=== PATIENT | female | born 1965 | race Caucasian/White ===

== ENCOUNTER → 2017-07-24 | Outpatient (CLI) | payer BC | LOC: COL.RAD 11:19 | DX: T84.213A Breakdown (mechanical) of internal fixation device of bones of foot and toes, initial encounter (principal); Z98.1 Arthrodesis status ==

== ENCOUNTER → 2017-08-10 | Outpatient (CLI) | payer BC | LOC: COL.RAD 07:17 | DX: D25.9 Leiomyoma of uterus, unspecified (principal); R68.82 Decreased libido; N95.9 Unspecified menopausal and perimenopausal disorder ==

== ENCOUNTER → 2017-08-17 | Outpatient (CLI) | payer BC | LOC: MC.RAD 14:48 | DX: Z12.31 Encounter for screening mammogram for malignant neoplasm of breast (principal); N64.89 Other specified disorders of breast; N94.10 Unspecified dyspareunia; N95.9 Unspecified menopausal and perimenopausal disorder; G47.00 Insomnia, unspecified; R68.82 Decreased libido; R53.81 Other malaise; R53.82 Chronic fatigue, unspecified; Z98.890 Other specified postprocedural states ==

== ENCOUNTER → 2017-08-31 | Outpatient (CLI) | payer BC | LOC: MC.RAD 09:00 | DX: R92.2 Inconclusive mammogram (principal); N64.89 Other specified disorders of breast ==

== ENCOUNTER 2018-05-17 11:34 | Emergency (ER) | payer SELFPAY ==
[~2018-05-17] VITALS: Ht 162.6 cm; Wt 113.6 kg
[2018-05-17 11:38] VITALS: BP 137/76; PULSE 66; TEMP 98.3
[2018-05-17] MEDS ORDERED: NORCO 325 MG-51 TAB PO (13:22)
== END 2018-05-17 14:09 | disposition home or self-care (01) ==
LOC: COL.ER 11:34
DX: S46.912A Strain of unspecified muscle, fascia and tendon at shoulder and upper arm level, left arm, initial encounter (principal); S20.212A Contusion of left front wall of thorax, initial encounter; I10 Essential (primary) hypertension; W01.190A Fall on same level from slipping, tripping and stumbling with subsequent striking against furniture, initial encounter; Y92.89 Other specified places as the place of occurrence of the external cause
CPT/HCPCS: A9284